=== PATIENT | male | born 1995 | race Caucasian/White ===

== ENCOUNTER 2019-02-12 08:17 | Emergency (ER) | payer SELFPAY ==
[~2019-02-12] VITALS: Ht 172.7 cm; Wt 86.0 kg
[2019-02-12 08:35] VITALS: BP 120/85
== END 2019-02-12 09:53 | disposition home or self-care (01) ==
LOC: ER 08:17
DX: F10.288 Alcohol dependence with other alcohol-induced disorder (principal); R56.9 Unspecified convulsions; Y90.9 Presence of alcohol in blood, level not specified
CPT/HCPCS: 82962; 99283